=== PATIENT | male | born 1965 | race Caucasian/White ===

== ENCOUNTER 2016-07-26 00:26 | Inpatient (IN) | payer OTHER ==
--- NOTE | ~2016-07-26 | HP ---
History And Physical [place] [id number] [facility] [place]. [address] NAME: NICK DAMON : 65 STATUS : ADM IN [facility]#: [id number] AGE: 50 ADM/REG DATE : 07/26/16 MR#: [id number] REPORT SERV DATE: 07/26/16 DICTATED BY: ROSALIND LENZ DATE: 07/26/16 REPORT STATUS : Draft TRANSCRIBED BY: MODL DATE: 07/26/16 DATE OF ADMISSION: 07/26/2016 ATTENDING PHYSICIAN: Dr. Barreto. REASON FOR ADMISSION: Acute renal failure and morbid obesity with excoriation and skin damage from poor hygiene and super morbid obesity. HISTORY OF PRESENT ILLNESS: This is a 50-year-old morbidly obese, white male, not previously known to the [facility], however, known well to the examining physician. Mr. Damon was admitted to the [facility] when it was still in business with super morbid obesity and urine excoriation and ulcerations from urinating on himself and defecating on himself for over a prolonged period of time. On admission to [facility], the couch had to be peeled from him. He had been lying on the couch for several months in his father's house. His father would bring him food. He would defecate in a astorga of some sort and urinate in the astorga of some short, but does not get up and ambulate. The last he ambulated was about three to four years ago. He remained in the [facility] system for about three to four months and was discharged to [facility]. He was able to ambulate there in a wheelchair, self propelling himself at that time. He stayed there for about 30 days and went back home. His weight at discharge was 419 pounds. He has gained back up to around 800 pounds, where he was initially admitted to the system there. He has been at [facility] in the past for unknown diagnosis. I thought he may have had a bipolar affective disorder, but this was unconfirmed by psychiatric evaluation. He was on antipsychotic medication for this in the past the last time I saw him, though that was several physicians treating ago. He came to the emergency room this time because he had not been eating much for the last several days and he had change in mental status. His father called for help because he had change in mental status and was brought to the emergency room. where he was examined by several physicians including Dr. Ed Dubon, who was on sales and service agent at [facility]. Dr. Bauman, who was going to take him to the intensive care unit because of hypotension but because of morbid obesity, was reluctant. Dr. Axel Neves, who felt that he is a more intensive care unit patient with altered mental status and unable to get a CT scan because of his morbid obesity and size. Dr. Han Abel says that they considered sending him to the zoo that could handle a body weight over 600 pounds on the gantry for a CT scan of the brain; however, the patient is alert and able to give history, he is mobile bilaterally. He does have weakness in the left lower extremity, but he has not walked on that in the last four or five years. 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 I discussed with the behavioral health case manager, Sheryl, in the emergency room. She will assist with final disposition, though with the patient's dehydration and acute renal failure, he will be admitted to the hospital for resuscitation from this; however, other resuscitative attempts would be futile and will not be embarked upon. I discussed this with Dr. Abel who agrees. History And Physical [address] [address] NAME: NICK DAMON : 65 STATUS : ADM IN [facility]#: [id number] AGE: 50 ADM/REG DATE : 07/26/16 MR#: [id number] REPORT SERV DATE: 07/26/16 DICTATED BY: ROSALIND LENZ DATE: 07/26/16 REPORT STATUS : Draft TRANSCRIBED BY: MODL DATE: 07/26/16 PAST MEDICAL HISTORY: Hospitalized at [facility] with urine gibson and excoriation from poor hydration and super morbid obesity. He may have some history of depression in the past as well. HOME MEDICATIONS: His home medications are suspected to being the following: Laury Aspirin 325 p.o. daily, famotidine 200 mg p.o. daily, gabapentin 300 mg three times a day, glipizide 10 mg p.o. b.i.d., ibuprofen 400 mg p.o. three times a day, lisinopril 20 mg p.o. daily, Seroquel 25 mg p.o. at bedtime, Risperdal 2 mg p.o. b.i.d. ALLERGIES: ABILIFY. OTHER PAST HISTORY WAS OUTLINED ABOVE. SOCIAL HISTORY: The patient has not been in the past. He lives at home on a couch. His father takes care of him. His mother in 2014. Lives in [place], [place], and went to [employer]. FAMILY HISTORY: There is some heart disease and high blood pressure runs in the family. Father is not morbidly obese. REVIEW OF SYSTEMS: The patient denies any pain. He does have numbness and weakness in the left lower extremity, but he lies on the couch the whole time. He admits to having gained back the other 400 pounds that he lost in the hospital over three months' period of time. He admits to only using a trash can or astorga for urine and feces. He has no chest pain, shortness of breath. No fever, chills, night sweats, melena, hematemesis, fits, seizures, or convulsions. He has an unknown psychiatric history and was seen in [facility] in the past. The remainder of the review of systems is negative. PHYSICAL EXAMINATION: GENERAL: Morbidly obese white male, in no acute distress. Alert. Mouth is somewhat dry. He is hungry and wants to eat. VITAL SIGNS: Initial blood pressure was 80, measurable only with super morbid obesity cuff, it was recorded at 76/64; his heart rate was 91; respiratory rate 20; oxygen saturation 97%. HEENT: EOMI. Sclerae are clear. He does have some mucoid changes in his eyes with drainage and his eyes are slightly sunken. Tongue is dry. He has poor dentition, poor oral hygiene. CHEST: No bruit without any JVD. CHEST: Clear to A and P. HEART: Regular S1, S2 without murmur, gallop, or click. ABDOMEN: Grossly obese. There is a large panniculus lying over the left leg down to the level of the knees. History And Physical [address] [place]. [address] NAME: ELEAZARNICK D : 65 STATUS : ADM IN PAT#: [id number] AGE: 50 ADM/REG DATE : 07/26/16 MR#: [id number] REPORT SERV DATE: 07/26/16 DICTATED BY: ROSALIND LENZ DATE: 07/26/16 REPORT STATUS : Draft TRANSCRIBED BY: TAYLOR DATE: 07/26/16 EXTREMITIES: Warm on the left side with 1+ pitting edema. Distal pulses not palpable. He has excoriations and rash over his upper arms and chest, also over the legs with cracking of the skin and peeling. I was unable lift the panniculus to be able to examine under the panniculus, though I suspect there is significant problem there as well. NEUROLOGIC: He is able to wiggle the toes of his right foot, not the toes of the left, but he says he is numb on the left leg that I can palpate up to the level of the knee. No DTRs are elicitable. His coating manager is equal and symmetric. He has no tremor. Coordination is intact. His tone, slightly slurring of speech, but he is symmetric neurologically in the upper extremities. He desires to eat, he can swallow, is alert and oriented, able to give history. His speech is cogent and goal directed, though evasive and tangential. LABORATORY DATA: Chest x-ray was done that showed cardiomegaly, diffuse alveolar edema in the right lung, questioning aspiration. The CMP showed a sodium of 125, potassium 5.3, creatinine 3.83 with a BUN of 46, his glucose was 174, the globulin was 4.9 with an albumin of 2.6, and the AST was 159. His creatinine was 3.83 with a BUN of 46, sodium 125. Lactate level was 1.7. Arterial blood gas 7.32, 46, and 59 in the brachial artery. ASSESSMENT: 1. Dehydration, likely lack of access to water and hydration likely causing this, plus the addition of ibuprofen and lisinopril contributing to this. 2. Super morbid obesity. 3. 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 4. Psychiatric problems, undefined, presently on Risperdal and Seroquel. We will get Dr. Ott to see if we can refine the diagnosis better and effect better treatment. 5. Hypotension with history of hypertension. We will hold the medications, allow the blood pressure to go up with hydration and watch. 6. Protein-calorie malnutrition. His albumin was 2.6, this is likely moderate at least. 7. Deplorable hygiene with urine gibson, excoriation over the body. We will try to clean him up here in the hospital to make him presentable for the next level of care. 8. Hyponatremia, likely a function of the medication and the morbid obesity. PLAN: The patient is unable to have any imaging here because of his large body habitus. He has regained 400 pounds since his discharge from the previous cleanup done at [facility]. Much of the resuscitative attempts will be superfluous, therefore, the patient is not going to be resuscitated, except fluid hydration and treatment with compassionate care. I have discussed with Dr. Abel who agrees with this. We will not intubate or ventilate. Consider noninvasive ventilation potentially, however, I do not see the need for that coming up this time. We will go ahead and hydrate. I will not use empiric antibiotics at this point, though questionable chest x-ray with aspiration, the patient is fully alert now and able to protect his airway, and maybe able to clear the mental status change just with hydration. Withhold offending medications. Remeasure the BMP in the morning. Hygiene consult. Nutrition consult. Psychiatry consult to help refine medications and prevent this from happening again. The patient appears to be incompetent to make decisions on his own and has chosen poorly from the last prolonged resuscitative attempt at [facility] with weight loss from the History And Physical [facility] [address] [facility] [place]. [address] NAME: NICK DAMON : 65 STATUS : ADM IN PAT#: [id number] AGE: 50 ADM/REG DATE : 07/26/16 MR#: [id number] REPORT SERV DATE: 07/26/16 DICTATED BY: ROSALIND LENZ DATE: 07/26/16 REPORT STATUS : Draft TRANSCRIBED BY: MODL DATE: 07/26/16 800 down to the 419 pounds, now gained back and having resumed the same living conditions in the squalor of his father's house. We will consult with Case Management for consideration of reporting to adult protective services, though the patient likely at fault with the present problems. The patient does live in [place], [place]. ADDENDUM: His procalcitonin level was 0.36. DB/MODL Rosalind Lenz M.D. / [id number] CC: Barak Ott M.D.
--- NOTE | ~2016-07-26 | CN ---
Consultation Report [facility] [address] [place]. [address] NAME: NICK BUSH : 65 STATUS : ADM IN PAT#: [id number] AGE: 50 ADM/REG DATE : 07/26/16 MR#: [id number] REPORT SERV DATE: 07/27/16 DICTATED BY: BARAK DAN DATE: 07/27/16 REPORT STATUS : Draft TRANSCRIBED BY: TAYLOR DATE: 07/27/16 PSYCHIATRIC CONSULTATION DATE OF CONSULTATION: 07/27/2016 I reviewed this patient's medical record. I discussed the patient's status with Dr. Valentine, the hospitalist. HISTORY OF PRESENT ILLNESS: He was admitted with morbid obesity and generalized weakness. I was consulted to address his psychotropic medications and his psychiatric history. PAST PSYCHIATRIC HISTORY: He reports that he attended [facility], which is a mental health clinic in [place] during the period 2011 to 2012 approximately. He said he was diagnosed with depression. Currently, he is taking Seroquel 25 mg at bedtime and Risperdal 2 mg b.i.d. He thinks he might have been started on these medications at [facility]. He said he thought these medications were prescribed to treat insomnia. He reports that he experiences very severe insomnia and that he can go for days without sleep if he does not take medication to combat it. SOCIAL HISTORY: He was living with his father. His mother in 2014. He is single. He never . FAMILY HISTORY: He reports no psychiatric illness. MENTAL STATUS: He was awake and alert. He was cooperative in attitude. He smiled and he expressed humor. His mood was euthymic, possibly bordering on the euphoric. His affect was full and appropriate. His thinking was logical. He had no delusions. He had no hallucinations. He was oriented to day, date, location, and persons. DIAGNOSES: 1. Unspecified psychiatric illness. 2. Morbid obesity. RECOMMENDATIONS: I will discontinue the Risperdal and Seroquel since I see no evidence of psychosis and they may be contributing to obesity and metabolic derangements. I will start him on Ambien 10 mg at bedtime p.r.n. for insomnia. I will request records from [facility]. I will follow. MIKAYLA/TAYLOR Barak Dan M.D. Consultation Report [place] [id number] [facility] [place]. [address] NAME: NICK BUSH : 65 STATUS : ADM IN PAT#: [id number] AGE: 50 ADM/REG DATE : 07/26/16 MR#: [id number] REPORT SERV DATE: 07/27/16 DICTATED BY: BARAK DAN DATE: 07/27/16 REPORT STATUS : Draft TRANSCRIBED BY: MODL DATE: 07/27/16 / [id number] CC: Abdulaziz Valentine M.D.
--- NOTE | ~2016-07-26 | IDS ---
Interim Discharge Summary [facility] [address] [place]. [address] NAME: NICK BUSH : 65 STATUS : ADM IN [facility]#: [id number] AGE: 50 ADM/REG DATE : 07/26/16 MR#: [id number] REPORT SERV DATE: 08/05/16 DICTATED BY: GRAHAM IBRAHIM IV DATE: 08/04/16 REPORT STATUS : Draft TRANSCRIBED BY: MODKentrell DATE: 08/04/16 ADMISSION DATE: 07/26/2016 DISCHARGE DATE: Date of the transfer to the Critical Care Service is 07/28/2016. REASON FOR ADMISSION: 1. Postprocedural respiratory failure with both hypoxemia and hypercapnia on the ventilator, now extubated. 2. Acute kidney injury, resolved. 3. Methicillin-resistant Staphylococcus aureus bronchitis, on Zyvox therapy. 4. Diabetes mellitus, on Levemir insulin sliding scale and diabetic diet. 5. Morbid obesity. 6. Electrolyte abnormalities, being corrected. CONSULTANTS: 1. Palliative Care on 07/27/2016. 2. Urology on 07/27/2016. 3. Psychiatry on 07/27/2016. PROCEDURES: The patient had subclavian line placement at the time of his intubation for the procedure on 07/28/2016. He had a Evans catheter placed by Urology on 07/29/2016. HOSPITAL COURSE: The patient was initially admitted to the Hospitalist Service. Because of severe excoriations from urinating on himself and his renal insufficiency, it was decided to proceed with placement of suprapubic catheter. This was performed on 07/28/2016, which required intubation. Postoperatively, he was moved to the intensive care unit. It became apparent that the suprapubic catheter was not working adequately and likely had been pulled from the bladder. The patient underwent placement of a Evans on 07/29/2016 with removal of over 2 liters of fluid. With this, the patient had marked improvement of his renal function with normalization of his creatinine. He was placed on tube feeds and was given insulin coverage, both long and short-acting. We attempted to wean trials, however, on the ventilator, he required significant FiO2 and would fail weaning trials. Tracheal aspirate demonstrates MRSA, which was treated with Zyvox because of his morbid obesity. He had electrolyte abnormalities, which were corrected. Palliative Care continue to follow the patient. We initially had difficulty contacting the patient's father who is the POA because a wrong phone number was listed. A family conference occurred on 08/04/2016, at which time, it was decided the patient would be removed from mechanical ventilator and not restarted. He was extubated on 08/04/2016 and is currently doing adequately on Vapotherm high-flow supplemental oxygen. He is now DNR and will not be reintubated. He was advanced to an ADA diet with continued support. NM/TAYLOR Interim Discharge Summary [address] [place]. [address] NAME: NICK BUSH : 65 STATUS : ADM IN [facility]#: [id number] AGE: 50 ADM/REG DATE : 07/26/16 MR#: [id number] REPORT SERV DATE: 08/05/16 DICTATED BY: GRAHAM IBRAHIM IV DATE: 08/04/16 REPORT STATUS : Draft TRANSCRIBED BY: TAYLOR DATE: 08/04/16 Graham Ibrahim IV, M.D. / [id number] CC: Abdulaziz Valentine M.D.
--- NOTE | ~2016-07-26 | CN ---
Consultation Report [facility] [address] [place]. [address] NAME: NICK BUSH : 65 STATUS : ADM IN PAT#: [id number] AGE: 50 ADM/REG DATE : 07/26/16 MR#: [id number] REPORT SERV DATE: 07/28/16 DICTATED BY: ASHLEY LAUREN DATE: 07/27/16 REPORT STATUS : Draft TRANSCRIBED BY: MODKentrell DATE: 07/27/16 UROLOGY CONSULT. DATE OF CONSULTATION: 07/27/2016 This consult is from Dr. Valentine regarding inability to place the Evans catheter. CHIEF COMPLAINT: "Well that tube hurt." HISTORY: This is a 50-year-old gentleman who has a very sad history. He was admitted for acute renal failure and super morbid obesity with excoriation and skin damage from severely poor hygiene. This is not the first time he has been admitted with this diagnosis. He was admitted to [facility] with super morbid obesity and ulcerations from urinating and defecating on himself over a prolonged period of time. On admission to [facility], the sofa he had been living on had to be peeled away from his body. At that time, his father would bring him food and he would relieve himself into some sort of pain, but he did not get up or ambulate for several years. He remained in the [facility] for about four months and was then discharged to the [facility]. While he was there, he was able to ambulate himself in a wheel chair propelling himself at that time. He stayed there for 30 days and his weight at discharge went from 800 pounds to 419 pounds. Also of note, he had been admitted to [facility] for psychiatric diagnosis in the past, but the psychiatric diagnosis is unknown at this time. When he came to the Emergency Room at [facility], it was for a change in mental status and for a decreased appetite. His father had called [facility] Medical [facility] because of these complaints. Various physicians saw him in the emergency room, but workup was difficult due to his size. Upon presentation, his creatinine was elevated at 3.83 and he was obviously severely dehydrated. He was alert and able to give a history, though he was not as sharp as his usual baseline according to his father. He was complaining of weakness and numbness in his left lower extremity, but that is the side he laid on the sofa and he has a huge panniculus lying on that side as well. Initially, the plan was to obtain a CT of the brain and other imaging studies, but none of the scanners in the hospital could handle his body weight. After discussion with various physicians and Dr. Astorga, who has known the patient for many years, the plan was to treat him with compassionate care. Since he has gained 400 pounds since his discharge from his previous excessive resuscitative efforts at [facility], the belief is that huge resuscitative attempts at this time would be superfluous. The plan with this admission is fluid hydration and treatment with compassionate care. All of the physicians discussed agreed with this. Therefore, the imaging plans were canceled. Since admission, he has received IV fluids. His creatinine has decreased down to 1.57. His urine output has been very good. With the help of nine staff members and nurses, the patient underwent a bath that took an hour. This was after he had been treated for bed bugs in the emergency room. During his bath, he was found to have multiple skin lesions and sores on his arms and his legs and all of his skin folds. This also included his buttocks area and scrotal area which had been dependent while he has been living on the sofa these past several years. The concern is that if he continues to void out of the hole in his Consultation Report [address] [place]. [address] NAME: NICK BUSH Becca : 65 STATUS : ADM IN [facility]#: [id number] AGE: 50 ADM/REG DATE : 07/26/16 MR#: [id number] REPORT SERV DATE: 07/28/16 DICTATED BY: ASHLEY LAUREN DATE: 07/27/16 REPORT STATUS : Draft TRANSCRIBED BY: TAYLOR DATE: 07/27/16 buried penis and then leak urine on to his skin, the skin lesions will never heal. Evans catheter attempts were tried, but of course, with a buried penis, it was almost impossible to place a Evans catheter. Currently, nursing has been placing a urinal over the hole where his penis is located and he voids into the urinal that way. This does not keep him completely dry, but it does help. They were able to get fairly good urine output numbers with this. PAST MEDICAL HISTORY: Super morbid obesity, depression, gastroesophageal reflux disease, diabetes, hypertension, insomnia, severe deconditioning with no attempts to walk for a number of years as he had undefined psychiatric problems, protein malnutrition, and deplorable hygiene. PAST SURGICAL HISTORY: None recorded. ALLERGIES: ABILIFY. MEDICATIONS ON ADMISSION: Aspirin 325 mg a day, famotidine 200 mg a day, gabapentin 300 mg three times a day, glipizide 10 mg b.i.d., ibuprofen 400 mg three times a day, lisinopril 20 mg a day, Seroquel 25 mg at bedtime, Risperdal 2 mg b.i.d. SOCIAL HISTORY: He lives with his father on a sofa. His father is the one who cares for him. His mother in 2014. Denies any alcohol or tobacco use. REVIEW OF SYSTEMS: GENERAL: Denies fever or chills. NEUROLOGIC: He does have numbness and weakness in his left lower extremity. ENDOCRINE: As above. HEART: As above. LUNGS: Denies symptoms. GI: As above. : Denies symptoms. PHYSICAL EXAMINATION: VITAL SIGNS: He has been afebrile. Blood pressure 115/51, pulse of 87, saturating 96% on 4 L nasal cannula. In's and out's recorded for yesterday were 522 mL in and 1550 mL out. GENERAL: He is in no acute distress. Lying in bed. NEUROLOGIC: Alert and oriented x3. PSYCHIATRIC: Appropriate. HEENT: Facial features symmetric. EYES: Sclerae anicteric. NECK: Supple. LUNGS: Equal inspiratory effort bilaterally. HEART: Regular rate and rhythm. ABDOMEN: Obese. EXTREMITIES: Obese. Consultation Report [place] [id number] [facility] [place]. [address] NAME: NICK BUSH : 65 STATUS : ADM IN [facility]#: [id number] AGE: 50 ADM/REG DATE : 07/26/16 MR#: [id number] REPORT SERV DATE: 07/28/16 DICTATED BY: ASHLEY LAUREN DATE: 07/27/16 REPORT STATUS : Draft TRANSCRIBED BY: TAYLOR DATE: 07/27/16 LABORATORY STUDIES: White count is 7.8, hemoglobin 10.8, hematocrit 33, platelets 293. Sodium 133, potassium 5.1, chloride 99, CO2 26, BUN of 36, creatinine 1.57, glucose 106, calcium of 8.3, albumin of 2.6, bilirubin 0.5, alk phos 58, ALT of 38, AST of 159. Blood cultures are negative. Chest x-ray showed diffuse alveolar edema in the right lung, question aspiration pneumonitis. 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 PLAN: 1. Even if I could heroically place a Evans catheter in this gentleman, it would need to be changed once a month. Changing the catheter would be quite difficult and successful exchange every month is not at all guaranteed with someone of his body habitus. 2. The most reasonable plan for diversion of his urine for skin healing would be placement of a suprapubic tube by Interventional Radiology. Having this tube located in his lower abdomen, would allow easier access for cleaning and monitoring the tube. Also, it could be exchanged much more easily than a Evans catheter would be in someone with his body habitus. I have discussed this with the patient and he is willing to proceed with this tomorrow. 3. I have written orders to ask Interventional Radiology to work him into their schedule tomorrow for suprapubic tube placement under radiologic guidance. Hopefully, they can do this under ultrasound guidance, which means he would not need to be placed on an x- ray table. I have written for laboratory studies in the morning that they will require and also to hold his aspirin and heparin. 4. We will check on him tomorrow and make sure that all goes well. 5. This suprapubic tube can be removed once his skin has healed. ERIKA/TAYLOR Ashley Lauren M.D. / [id number] CC: Abdulaziz Valentine M.D.
--- NOTE | ~2016-07-26 | IDS ---
Interim Discharge Summary [facility] [address] [place]. [address] NAME: NICK BUSH : 65 STATUS : ADM IN PAT#: [id number] AGE: 51 ADM/REG DATE : 07/26/16 MR#: [id number] REPORT SERV DATE: 08/15/16 DICTATED BY: BONIFACIO BABIN DATE: 08/14/16 REPORT STATUS : Draft TRANSCRIBED BY: MODL DATE: 08/14/16 ADMISSION DATE: 07/26/2016 DISCHARGE DATE: INTERIM DIAGNOSES LIST: Include: 1. Acute on chronic respiratory failure, hypoxic and hypercapnic. 2. Super morbid obesity and hypoventilation syndrome, but intolerant to BiPAP. 3. Acute urinary retention with Evans catheter placement by Urology. 4. Diabetes type 2, hemoglobin A1c of 8.9. 5. Acute kidney injury resolved. 6. Methicillin-resistant Staphylococcus aureus that is treated. 7. Incontinence of stool. HISTORY OF PRESENT ILLNESS: This is an unfortunate 51-year-old male who originally presented to [facility] on 07/26/2016. Please see the initial H and P of Dr. Jimmy Astorga, as the patient admitted initially to the hospitalist service, as the patient had severe dehydration, severe volume overload, malnutrition, hyponatremia, excoriation to skin, and the patient was also seen by the [facility], and please see the interim discharge summaries of Dr. Bob Ibrahim and Dr. Joshua Navarro as this discharge summary will cover the dates of 08/08/2016 to 08/14/2016. CONSULTANTS DURING THIS ADMISSION: Include Psychiatry, Barak Ott M.D., the Urology, Ashley Lauren M.D., Critical Care Services as stated, and Palliative Care, Dr. Canseco. Once the patient was moved out of the intensive care unit, he continued to diurese quite well and his oxygen requirements were still high, but able to be weaned slowly. Initially was on a high-flow oxygen approximately 17 L, but has been slowly step-down each day, all the way to 4 L nasal cannula. He has been attempted on BiPAP therapy nightly, however, he has been completely intolerant to this and refuses to wear the BiPAP, but has made continued improvement in his overall outlook and as stated, continues to diurese very well. Currently Case Management is looking into placement, but it continues to be a difficult issue to find a facility for him. Overall, he has remained afebrile. Blood pressures have been stable and blood sugars are well controlled, and his skin has improved a good deal. CSC/MODL Bonifacio Babin NP / [id number] CC: Laura Garcia M.D.
--- NOTE | ~2016-07-26 | IDS ---
Interim Discharge Summary [facility] [address] [place]. [address] NAME: NICK BUSH : 65 STATUS : ADM IN [facility]#: [id number] AGE: 50 ADM/REG DATE : 07/26/16 MR#: [id number] REPORT SERV DATE: 08/06/16 DICTATED BY: NHI LUJAN DATE: 08/05/16 REPORT STATUS : Draft TRANSCRIBED BY: MODL DATE: 08/05/16 ADMISSION DATE: 07/26/2016 DISCHARGE DATE: 08/05/2016 DISCHARGE DIAGNOSES: 1. Hypoxic hypercapnic respiratory failure, extubated on 08/04/2016, resolved pneumonia MRSA on D5 and Zyvox. 2. Morbid obesity, obstructive sleep apnea, obesity hypoventilation syndrome, refuses to wear BiPAP. 3. Acute kidney injury on chronic kidney disease. Creatinine is trended down to 0.87. 4. Urinary retention catheter. 5. Diabetes mellitus, on insulin. The patient is awake, alert, responsive, and he is communicative. Sodium 142, potassium 3.2 being corrected, chloride 98, CO2 of 35, BUN 14, creatinine 0.74, glucose 125, calcium 8.2, magnesium 2.0, phosphorus 2.7. Interim discharge already dictated. Chest x-ray; no acute cardiopulmonary disease or cardiomegaly. RP/TAYLOR Nhi Lujan M.D. / [id number] CC: Abdulaziz Valentine M.D.
--- NOTE | ~2016-07-26 | PUL ---
[place] [id number] [place]. [address] NAME: NICK UBSH : 65 STATUS : ADM IN [facility]#: [id number] AGE: 50 ADM/REG DATE : 07/26/16 MR#: [id number] REPORT SERV DATE: 07/30/16 DICTATED BY: JEREMIAS CISNEROS DATE: 07/30/16 REPORT STATUS : Draft TRANSCRIBED BY: MODL DATE: 07/30/16 PULMONARY FUNCTION TEST PROCEDURE PERFORMED: Overnight oximetry performed on supplemental oxygen. Recorded time was slightly over six hours. FINDINGS: The patient spent slightly over five minutes with an oxygen saturation below 88% and did have an elevated desaturation event index. IMPRESSION: Mild desaturation on supplemental oxygen. Consider increasing liter flow to 3 L/minute. Consider formal sleep study if clinically indicated given the elevated desaturation event index. BARRIE/TAYLOR Jeremias Cisneros M.D. / [id number] CC: Abdulaziz Valentine M.D.
--- NOTE | ~2016-07-26 | DS ---
Discharge Summary [facility] [address] [place]. [address] NAME: NICK BUSH : 65 STATUS : DIS IN PAT#: [id number] AGE: 51 ADM/REG DATE : 07/26/16 MR#: [id number] REPORT SERV DATE: 08/25/16 DICTATED BY: JIMY MCINTYRE DATE: 08/24/16 REPORT STATUS : Draft TRANSCRIBED BY: MODL DATE: 08/24/16 ADMISSION DATE: 07/26/2016 DISCHARGE DATE: 08/23/2016 DISCHARGE DIAGNOSES: 1. Acute on chronic respiratory failure, hypoxic and hypercapnic. 2. Morbidly obese with hypoventilation syndrome, intolerant to BiPAP. 3. Acute urinary retention with Evans catheter placement then having to place patient in the ICU. 4. Type 2 diabetes mellitus. 5. Acute kidney injury, now resolved. 6. Methicillin-resistant Staphylococcus aureus pneumonia that has been treated. 7. Incontinent of stool. CONSULTANTS DURING THE HOSPITALIZATION: Palliative Care, Urology, and Psychiatry. INVASIVE PROCEDURES DURING THIS HOSPITALIZATION: Subclavian line placement at the time of intubation and mechanical ventilation, Evans catheter placement under anesthesia by Urology. Then followed by respiratory failure. HOSPITAL COURSE: This patient initially was admitted on 07/26/[address] Jimmy Astorga for acute renal failure, morbid obesity, excoriations of the skin, and poor hygiene. For detailed history and physical exam, please see note dictated by Dr. Astorga on 07/26/2016. HOSPITAL COURSE: After being admitted to the hospital, this patient underwent Psychiatric consultation. He underwent a Urology consultation for Evans placement and Pulmonology consultation on 07/27/2016, 07/28/2016, 07/30/2016 appropriately, and then postprocedure after Evans placement, this patient had respiratory failure, so he had to be transitioned to the intensive care unit with intubation. This patient remained in the intensive care unit until 07/27/2016. Please refer to interim summary dictated by Dr. Ibrahim and Dr. Navarro. This patient was transitioned to the floor after that and was under the care of the hospitalist team. Please refer to interim summary dictated by nurse practitioner, Bonifacio Stark, on 08/15/2016 for that hospital course. After 08/15/2016, this patient was cared for by various other hospitalist and no interim summary was available. I took over this patient's care on 08/22/2016, this patient was doing relatively well. We were waiting for a bariatric bed to be available at [facility] facility. This was made available on the 08/23/2016. I personally reviewed all his medications, and this patient was discharged to a skilled unit in stable condition. We have continued his Evans catheter, and at that time, it was deemed necessary that he continued with the Evans catheter. DISCHARGE MEDICATIONS: Discharge medications were personally reviewed on the AUG and signed off by me. DISCHARGE ACTIVITY: Per facility. DISCHARGE DIET: 2000 calorie ADA diet. Discharge Summary [address] [address] NAME: NICK BUSH : 65 STATUS : DIS IN [facility]#: [id number] AGE: 51 ADM/REG DATE : 07/26/16 MR#: [id number] REPORT SERV DATE: 08/25/16 DICTATED BY: JIMY MCINTYRE DATE: 08/24/16 REPORT STATUS : Draft TRANSCRIBED BY: TAYLOR DATE: 08/24/16 DISCHARGE FOLLOWUP: Will be with primary care physician. DUANE/TAYLOR Jimy Mcintyre M.D. / [id number] CC: Jimy Mcintyre M.D.
[2016-07-26 02:01] LABS: BASOPHILS 0.2 %; BASOPHILS ABSOLUTE 0.02 10/3/uL (0.0-0.16); EOSINOPHILS 0.6 %; EOSINOPHILS ABSOLUTE 0.07 10/3/uL (0.0-0.53); ER CBC TAT 0 Hrs 16 Mins; HEMATOCRIT 35.5 % (40.0-51.0); HEMOGLOBIN 11.8 g/dL (13.6-17.8); IMMATURE GRANULOCYTES 0.5 %; IMMATURE GRANULOCYTES ABSOLUTE 0.06 10/3/uL (0.0-0.11); LYMPHOCYTES 8.5 %; LYMPHOCYTES ABSOLUTE 0.94 10/3/uL (0.67-4.30); MEAN CORPUS HGB CONC 33.2 g/dL (32.0-36.0); MEAN CORPUSCULAR HEMOGLOB 31.1 pg (26.0-34.0); MEAN CORPUSCULAR VOLUME 93.4 fL (80-100); MEAN PLATELET VOLUME 8.7 fL (9.2-13.0); MONOCYTES 7.2 %; NEUTROPHILS ABSOLUTE 9.19 10/3/uL (2.02-8.40); PLATELET COUNT 316 10/3/uL (150-400); RBC DISTRIBUTION WIDTH 14.1 % (12.0-16.0); WHITE BLOOD CELLS 11.1 10/3/uL (4.5-10.5)
[2016-07-26 02:03] LABS: INSTRUMENT SERIAL # 8087; PCO2 (CO2 TENSION) 46 MMHG (35-45); PO2 (O2 TENSION) 59 MMHG (79-93); pH 7.32 (7.37-7.43)
[2016-07-26 02:04] LABS: CARBOXYHEMOGLOBIN 1.9 % (0-3); HCO3 (ACTUAL BICARBONATE) 23.2 MEQ/L (23-27); HEMOBLOGIN CONTENT 11.3 G/DL (14-18); METHEMOGLOBIN 0.1 % (0-3); O2 CONTENT 13.8 VOL% (18-24); SAMPLE Arterial
[2016-07-26 02:09] LABS: LACTATE 1.7 MMOL/L (0.3-2.4)
[2016-07-26 02:14] LABS: MANUAL DIFF NO %
[2016-07-26 02:16] LABS: PLATELET ESTIMATE ADQ (ADEQUATE)
[2016-07-26 05:06] LABS: POTASSIUM, SERUM 5.3 MMOL/L (3.5-5.3); SGOT(AST) 159 U/L (5-40); SODIUM, SERUM 125 MMOL/L (135-148)
[2016-07-26 05:23] LABS: CHLORIDE, SERUM 91 MMOL/L (96-112)
[2016-07-26 05:24] LABS: A/G RATIO 0.5 (0.7-1.9); ALBUMIN 2.6 G/DL (3.5-5.0); ALKALINE PHOSPHATASE 58 U/L (45-117); BUN (BLOOD UREA NITROGEN) 46 MG/DL (6-23); CALCIUM, SERUM 8.3 MG/DL (8.5-10.4); CO2 (CARBON DIOXIDE) 22 MMOL/L (24-34); CREATININE 3.83 MG/DL (0.70-1.30); GFR AFRICAN AMERICAN 20 ML/MIN (>=60); GFR NON AFRICAN AMERICAN 17 ML/MIN (>=60); GLOBULIN 4.9 G/DL (2.5-4.1); GLUCOSE, SERUM 174 MG/DL (60-99); SGPT(ALT) 38 U/L (5-65); TOTAL BILIRUBIN 0.5 MG/DL (0-1.2); TOTAL PROTEIN 7.5 G/DL (6.0-8.5)
[2016-07-26] MEDS ORDERED: NEUR300 PO (06:02)
[2016-07-26] MEDS ORDERED: SEROQUEL25 PO (06:03)
[2016-07-26] MEDS ORDERED: PEP20 PO (06:03)
[2016-07-26] MEDS ORDERED: IBU400 PO (06:03)
[2016-07-26] MEDS ORDERED: RISP2 PO (06:03)
[2016-07-26] MEDS ORDERED: PRIN20 PO (06:03)
[2016-07-26] MEDS ORDERED: GLUCOTRO10 PO (06:04)
[2016-07-26] MEDS ORDERED: ASABAYER PO (06:04)
[2016-07-26 06:05] LABS: PROCALCITONIN 0.36 ng/mL (<0.5)
[2016-07-27 09:59] LABS: BASOPHILS 0.3 %; BASOPHILS ABSOLUTE 0.02 10/3/uL (0.0-0.16); EOSINOPHILS 4.1 %; EOSINOPHILS ABSOLUTE 0.32 10/3/uL (0.0-0.53); HEMOGLOBIN 10.8 g/dL (13.6-17.8); IMMATURE GRANULOCYTES ABSOLUTE 0.08 10/3/uL (0.0-0.11); LYMPHOCYTES 15.9 %; LYMPHOCYTES ABSOLUTE 1.24 10/3/uL (0.67-4.30); MEAN CORPUS HGB CONC 32.7 g/dL (32.0-36.0); MEAN CORPUSCULAR HEMOGLOB 31.2 pg (26.0-34.0); MEAN CORPUSCULAR VOLUME 95.4 fL (80-100); MEAN PLATELET VOLUME 8.6 fL (9.2-13.0); MONOCYTES 10.3 %; NEUTROPHILS 68.4 %; NEUTROPHILS ABSOLUTE 5.34 10/3/uL (2.02-8.40); PLATELET COUNT 293 10/3/uL (150-400); RBC DISTRIBUTION WIDTH 14.1 % (12.0-16.0); RED CELL COUNT 3.46 10/6/uL (4.7-6.1); WHITE BLOOD CELLS 7.8 10/3/uL (4.5-10.5)
[2016-07-27 10:00] LABS: MANUAL DIFF NO %
[2016-07-27 10:09] LABS: BUN (BLOOD UREA NITROGEN) 36 MG/DL (6-23); CALCIUM, SERUM 8.3 MG/DL (8.5-10.4); CHLORIDE, SERUM 99 MMOL/L (96-112); CO2 (CARBON DIOXIDE) 26 MMOL/L (24-34); CREATININE 1.57 MG/DL (0.70-1.30); GFR AFRICAN AMERICAN 59 ML/MIN (>=60); GFR NON AFRICAN AMERICAN 51 ML/MIN (>=60); GLUCOSE, SERUM 106 MG/DL (60-99); POTASSIUM, SERUM 5.1 MMOL/L (3.5-5.3); SODIUM, SERUM 133 MMOL/L (135-148)
[2016-07-28 05:33] LABS: ALLENS TEST Pos; CARBOXYHEMOGLOBIN 0.9 % (0-3); HCO3 (ACTUAL BICARBONATE) 24.8 MEQ/L (23-27); HEMOBLOGIN CONTENT 10.5 G/DL (14-18); INSTRUMENT SERIAL # 8083; METHEMOGLOBIN 0.3 % (0-3); O2 CONTENT 13.8 VOL% (18-24); OPERATOR ID 30013; PCO2 (CO2 TENSION) 58 MMHG (35-45); PO2 (O2 TENSION) 77 MMHG (79-93); SAMPLE Arterial; pH 7.25 (7.37-7.43)
[2016-07-28 06:03] LABS: INTERNATIONAL NORMAL RATI 1.2 UNITS (-); PROTIME (NOT ORD) 14.7 SEC (12.0-14.5)
[2016-07-28 06:11] LABS: BASOPHILS 0.5 %; BASOPHILS ABSOLUTE 0.04 10/3/uL (0.0-0.16); EOSINOPHILS 4.4 %; EOSINOPHILS ABSOLUTE 0.38 10/3/uL (0.0-0.53); HEMATOCRIT 31.3 % (40.0-51.0); IMMATURE GRANULOCYTES 1.8 %; IMMATURE GRANULOCYTES ABSOLUTE 0.15 10/3/uL (0.0-0.11); LYMPHOCYTES 19.1 %; LYMPHOCYTES ABSOLUTE 1.63 10/3/uL (0.67-4.30); MEAN CORPUS HGB CONC 31.9 g/dL (32.0-36.0); MEAN CORPUSCULAR HEMOGLOB 31.2 pg (26.0-34.0); MEAN CORPUSCULAR VOLUME 97.5 fL (80-100); MEAN PLATELET VOLUME 8.4 fL (9.2-13.0); MONOCYTES 12.5 %; MONOCYTES ABSOLUTE 1.07 10/3/uL (0.21-1.20); NEUTROPHILS 61.7 %; NEUTROPHILS ABSOLUTE 5.28 10/3/uL (2.02-8.40); PLATELET COUNT 321 10/3/uL (150-400); RBC DISTRIBUTION WIDTH 14.4 % (12.0-16.0); RED CELL COUNT 3.21 10/6/uL (4.7-6.1); WHITE BLOOD CELLS 8.6 10/3/uL (4.5-10.5)
[2016-07-28 06:14] LABS: MANUAL DIFF NO %
[2016-07-28 06:15] LABS: A/G RATIO 0.5 (0.7-1.9); ALBUMIN 2.2 G/DL (3.5-5.0); ALKALINE PHOSPHATASE 45 U/L (45-117); BUN (BLOOD UREA NITROGEN) 34 MG/DL (6-23); CALCIUM, SERUM 8.5 MG/DL (8.5-10.4); CHLORIDE, SERUM 99 MMOL/L (96-112); CO2 (CARBON DIOXIDE) 26 MMOL/L (24-34); CREATININE 1.77 MG/DL (0.70-1.30); GFR AFRICAN AMERICAN 51 ML/MIN (>=60); GFR NON AFRICAN AMERICAN 44 ML/MIN (>=60); GLOBULIN 4.3 G/DL (2.5-4.1); GLUCOSE, SERUM 99 MG/DL (60-99); PHOSPHORUS, SERUM 4.7 MG/DL (2.5-4.5); POTASSIUM, SERUM 5.4 MMOL/L (3.5-5.3); SGOT(AST) 280 U/L (5-40); SGPT(ALT) 58 U/L (5-65); SODIUM, SERUM 134 MMOL/L (135-148); TOTAL BILIRUBIN 0.6 MG/DL (0-1.2); TOTAL PROTEIN 6.5 G/DL (6.0-8.5)
[2016-07-28 07:33] LABS: PROCALCITONIN 0.11 ng/mL (<0.5)
[2016-07-28 18:43] LABS: BE (BASE EXCESS) 0.7 MEQ/L (0 +/- 2.5); CARBOXYHEMOGLOBIN 0.4 % (0-3); HCO3 (ACTUAL BICARBONATE) 27.2 MEQ/L (23-27); HEMOBLOGIN CONTENT 11.3 G/DL (14-18); INSTRUMENT SERIAL # 11843; METHEMOGLOBIN 0.4 % (0-3); MODE SIMV; O2 CONTENT 16.2 VOL% (18-24); OPERATOR ID 19104; PCO2 (CO2 TENSION) 53 MMHG (35-45); PO2 (O2 TENSION) 241 MMHG (79-93); SAMPLE Arterial; TIDAL VOLUME 700 ML; pH 7.33 (7.37-7.43)
[2016-07-29 03:59] LABS: BE (BASE EXCESS) 1.4 MEQ/L (0 +/- 2.5); CARBOXYHEMOGLOBIN 0.1 % (0-3); HCO3 (ACTUAL BICARBONATE) 26.3 MEQ/L (23-27); INSTRUMENT SERIAL # 35151; PCO2 (CO2 TENSION) 43 MMHG (35-45); PO2 (O2 TENSION) 87 MMHG (79-93); pH 7.41 (7.37-7.43)
[2016-07-29 04:00] LABS: HEMOBLOGIN CONTENT 10.4 G/DL (14-18); METHEMOGLOBIN 0.2 % (0-3); MODE CMV; O2 CONTENT 14.2 VOL% (18-24); SAMPLE Arterial; TIDAL VOLUME 700 ML
[2016-07-29 07:39] LABS: BASOPHILS 0.4 %; BASOPHILS ABSOLUTE 0.03 10/3/uL (0.0-0.16); EOSINOPHILS 4.4 %; EOSINOPHILS ABSOLUTE 0.37 10/3/uL (0.0-0.53); HEMATOCRIT 28.8 % (40.0-51.0); HEMOGLOBIN 9.5 g/dL (13.6-17.8); IMMATURE GRANULOCYTES 1.7 %; IMMATURE GRANULOCYTES ABSOLUTE 0.14 10/3/uL (0.0-0.11); LYMPHOCYTES 17.1 %; LYMPHOCYTES ABSOLUTE 1.45 10/3/uL (0.67-4.30); MEAN CORPUSCULAR HEMOGLOB 30.9 pg (26.0-34.0); MEAN PLATELET VOLUME 8.2 fL (9.2-13.0); MONOCYTES 8.3 %; NEUTROPHILS 68.1 %; NEUTROPHILS ABSOLUTE 5.78 10/3/uL (2.02-8.40); PLATELET COUNT 240 10/3/uL (150-400); RBC DISTRIBUTION WIDTH 14.3 % (12.0-16.0); RED CELL COUNT 3.07 10/6/uL (4.7-6.1); WHITE BLOOD CELLS 8.5 10/3/uL (4.5-10.5)
[2016-07-29 07:41] LABS: MANUAL DIFF NO %; MEAN CORPUSCULAR VOLUME 93.8 fL (80-100)
[2016-07-29 07:52] LABS: BUN (BLOOD UREA NITROGEN) 33 MG/DL (6-23); CALCIUM, SERUM 8.4 MG/DL (8.5-10.4); CHLORIDE, SERUM 100 MMOL/L (96-112); CHOL/HDL RATIO(NOT ORDER) 2.9 (0-5); CHOLESTEROL 110 MG/DL (< 200); CO2 (CARBON DIOXIDE) 26 MMOL/L (24-34); CREATININE 1.46 MG/DL (0.70-1.30); GFR AFRICAN AMERICAN 64 ML/MIN (>=60); GFR NON AFRICAN AMERICAN 55 ML/MIN (>=60); HDL CHOLESTEROL 38 MG/DL (> 39); LDL CHOLESTEROL 38 MG/DL (< 130); NON-HDL CHOLESTEROL 72 MG/DL (< 160); POTASSIUM, SERUM 5.3 MMOL/L (3.5-5.3); SODIUM, SERUM 137 MMOL/L (135-148); TRIGLYCERIDE 170 MG/DL (< 150)
[2016-07-29 07:53] LABS: GLUCOSE, SERUM 122 MG/DL (60-99); PHOSPHORUS, SERUM 3.7 MG/DL (2.5-4.5)
[2016-07-29 19:09] LABS: ASCORBIC ACID (UR NOT ORDER) NEG (NEG); BILIRUBIN, URINE NEGATIVE (NEG); KETONE, URINE TRACE MG/DL (NEG); LEUKOCYTE ESTERASE(NOT OR NEG (NEG); WBC (NOT ORDERED) (RFLEX) 1 (0-5)
[2016-07-30 03:50] LABS: ALLENS TEST Pos; BE (BASE EXCESS) 3.8 MEQ/L (0 +/- 2.5); CARBOXYHEMOGLOBIN 0.1 % (0-3); HCO3 (ACTUAL BICARBONATE) 29.1 MEQ/L (23-27); HEMOBLOGIN CONTENT 11.7 G/DL (14-18); INSTRUMENT SERIAL # 35151; METHEMOGLOBIN 0.1 % (0-3); MODE CMV; O2 CONTENT 15.9 VOL% (18-24); OPERATOR ID 17370; PCO2 (CO2 TENSION) 47 MMHG (35-45); PO2 (O2 TENSION) 89 MMHG (79-93); SAMPLE Arterial; TIDAL VOLUME 500 ML; pH 7.41 (7.37-7.43)
[2016-07-30 04:14] LABS: BASOPHILS 0.3 %; BASOPHILS ABSOLUTE 0.03 10/3/uL (0.0-0.16); EOSINOPHILS 0.9 %; HEMOGLOBIN 10.8 g/dL (13.6-17.8); IMMATURE GRANULOCYTES 2.2 %; IMMATURE GRANULOCYTES ABSOLUTE 0.24 10/3/uL (0.0-0.11); LYMPHOCYTES ABSOLUTE 0.86 10/3/uL (0.67-4.30); MEAN CORPUS HGB CONC 32.5 g/dL (32.0-36.0); MEAN CORPUSCULAR HEMOGLOB 30.9 pg (26.0-34.0); MEAN CORPUSCULAR VOLUME 94.9 fL (80-100); MEAN PLATELET VOLUME 8.3 fL (9.2-13.0); MONOCYTES 6.3 %; MONOCYTES ABSOLUTE 0.68 10/3/uL (0.21-1.20); NEUTROPHILS 82.3 %; NEUTROPHILS ABSOLUTE 8.86 10/3/uL (2.02-8.40); PLATELET COUNT 299 10/3/uL (150-400); RBC DISTRIBUTION WIDTH 13.8 % (12.0-16.0); WHITE BLOOD CELLS 10.8 10/3/uL (4.5-10.5)
[2016-07-30 04:28] LABS: ALBUMIN 2.1 G/DL (3.5-5.0); BUN (BLOOD UREA NITROGEN) 30 MG/DL (6-23); CALCIUM, SERUM 8.9 MG/DL (8.5-10.4); CHLORIDE, SERUM 98 MMOL/L (96-112); CO2 (CARBON DIOXIDE) 27 MMOL/L (24-34); CREATININE 1.41 MG/DL (0.70-1.30); GFR AFRICAN AMERICAN 67 ML/MIN (>=60); GFR NON AFRICAN AMERICAN 58 ML/MIN (>=60); PHOSPHORUS, SERUM 4.4 MG/DL (2.5-4.5); POTASSIUM, SERUM 5.2 MMOL/L (3.5-5.3); SODIUM, SERUM 136 MMOL/L (135-148)
[2016-07-30 04:39] LABS: GLUCOSE, SERUM 200 MG/DL (60-99)
[2016-07-30 04:40] LABS: HEMATOCRIT 33.2 % (40.0-51.0); MANUAL DIFF NO %
[2016-07-31 04:54] LABS: BE (BASE EXCESS) 5.3 MEQ/L (0 +/- 2.5); HCO3 (ACTUAL BICARBONATE) 31.2 MEQ/L (23-27); HEMOBLOGIN CONTENT 10.5 G/DL (14-18); INSTRUMENT SERIAL # 8087; METHEMOGLOBIN 0.1 % (0-3); MODE CMV; O2 CONTENT 14.3 VOL% (18-24); OPERATOR ID 334499; PCO2 (CO2 TENSION) 53 MMHG (35-45); PO2 (O2 TENSION) 92 MMHG (79-93); SAMPLE Arterial; TIDAL VOLUME 500 ML; pH 7.39 (7.37-7.43)
[2016-07-31 04:56] LABS: HEMATOCRIT 30.7 % (40.0-51.0); HEMOGLOBIN 9.9 g/dL (13.6-17.8); MEAN CORPUS HGB CONC 32.2 g/dL (32.0-36.0); MEAN CORPUSCULAR HEMOGLOB 30.8 pg (26.0-34.0); MEAN CORPUSCULAR VOLUME 95.6 fL (80-100); MEAN PLATELET VOLUME 8.5 fL (9.2-13.0); PLATELET COUNT 319 10/3/uL (150-400); RBC DISTRIBUTION WIDTH 14.4 % (12.0-16.0); RED CELL COUNT 3.21 10/6/uL (4.7-6.1); WHITE BLOOD CELLS 10.2 10/3/uL (4.5-10.5)
[2016-07-31 04:57] LABS: MANUAL DIFF YES %
[2016-07-31 05:19] LABS: CALCIUM, SERUM 8.9 MG/DL (8.5-10.4); CHLORIDE, SERUM 99 MMOL/L (96-112); CO2 (CARBON DIOXIDE) 30 MMOL/L (24-34); CREATININE 1.09 MG/DL (0.70-1.30); GFR AFRICAN AMERICAN 91 ML/MIN (>=60); GFR NON AFRICAN AMERICAN 79 ML/MIN (>=60); GLUCOSE, SERUM 199 MG/DL (60-99); PHOSPHORUS, SERUM 3.9 MG/DL (2.5-4.5); SODIUM, SERUM 137 MMOL/L (135-148)
[2016-07-31 05:23] LABS: BUN (BLOOD UREA NITROGEN) 24 MG/DL (6-23); POTASSIUM, SERUM 5.2 MMOL/L (3.5-5.3)
[2016-07-31 06:37] LABS: EOSINOPHILS 2 %; IMMATURE GRANS ABSOLUTE (CALC) 0.41 10/3/uL (0.0-0.11); LYMPHOCYTES 8 %; LYMPHOCYTES ABSOLUTE (CALC) 0.82 10/3/uL (0.67-4.30); METAMYELOCYTES 4 %; MONOCYTES 10 %; MONOCYTES ABSOLUTE (CALC) 1.02 10/3/uL (0.21-1.20); NEUTROPHILS ABSOLUTE (CALC) 7.75 10/3/uL (2.02-8.40); SEGMENTED NEUTROPHIL (0) 76 %; TEARDROP SHAPED RBCS OCC (0-2/OIF); TOTAL NUCLEATED CELLS 100
[2016-07-31 06:38] LABS: PLATELET ESTIMATE ADQ (ADEQUATE)
[2016-08-01 04:55] LABS: BASOPHILS 0.6 %; BASOPHILS ABSOLUTE 0.05 10/3/uL (0.0-0.16); EOSINOPHILS 2.9 %; EOSINOPHILS ABSOLUTE 0.25 10/3/uL (0.0-0.53); HEMATOCRIT 32.8 % (40.0-51.0); HEMOGLOBIN 9.9 g/dL (13.6-17.8); IMMATURE GRANULOCYTES 4.6 %; LYMPHOCYTES 18.2 %; LYMPHOCYTES ABSOLUTE 1.57 10/3/uL (0.67-4.30); MEAN CORPUS HGB CONC 30.2 g/dL (32.0-36.0); MEAN CORPUSCULAR HEMOGLOB 30.1 pg (26.0-34.0); MEAN CORPUSCULAR VOLUME 99.7 fL (80-100); MEAN PLATELET VOLUME 9.1 fL (9.2-13.0); MONOCYTES 6.3 %; MONOCYTES ABSOLUTE 0.54 10/3/uL (0.21-1.20); NEUTROPHILS 67.4 %; PLATELET COUNT 263 10/3/uL (150-400); RBC DISTRIBUTION WIDTH 14.5 % (12.0-16.0); RED CELL COUNT 3.29 10/6/uL (4.7-6.1); WHITE BLOOD CELLS 8.6 10/3/uL (4.5-10.5)
[2016-08-01 04:56] LABS: MANUAL DIFF NO %
[2016-08-01 05:21] LABS: A/G RATIO 0.4 (0.7-1.9); ALBUMIN 1.8 G/DL (3.5-5.0); ALKALINE PHOSPHATASE 38 U/L (45-117); BUN (BLOOD UREA NITROGEN) 23 MG/DL (6-23); CALCIUM, SERUM 8.6 MG/DL (8.5-10.4); CHLORIDE, SERUM 98 MMOL/L (96-112); CO2 (CARBON DIOXIDE) 28 MMOL/L (24-34); CREATININE 0.91 MG/DL (0.70-1.30); GFR AFRICAN AMERICAN 113 ML/MIN (>=60); GFR NON AFRICAN AMERICAN 98 ML/MIN (>=60); GLOBULIN 4.6 G/DL (2.5-4.1); GLUCOSE, SERUM 205 MG/DL (60-99); PHOSPHORUS, SERUM 3.2 MG/DL (2.5-4.5); SGPT(ALT) 38 U/L (5-65); SODIUM, SERUM 136 MMOL/L (135-148); TOTAL BILIRUBIN 0.3 MG/DL (0-1.2); TOTAL PROTEIN 6.4 G/DL (6.0-8.5)
[2016-08-01 05:48] LABS: POTASSIUM, SERUM 5.4 MMOL/L (3.5-5.3); SGOT(AST) 47 U/L (5-40)
[2016-08-02 04:32] LABS: BUN (BLOOD UREA NITROGEN) 20 MG/DL (6-23); CALCIUM, SERUM 8.8 MG/DL (8.5-10.4); CHLORIDE, SERUM 97 MMOL/L (96-112); CREATININE 0.89 MG/DL (0.70-1.30); GFR AFRICAN AMERICAN 116 ML/MIN (>=60); GFR NON AFRICAN AMERICAN 100 ML/MIN (>=60); GLUCOSE, SERUM 192 MG/DL (60-99); POTASSIUM, SERUM 4.5 MMOL/L (3.5-5.3); SODIUM, SERUM 139 MMOL/L (135-148)
[2016-08-02 04:33] LABS: CO2 (CARBON DIOXIDE) 33 MMOL/L (24-34)
[2016-08-03 05:10] LABS: BASOPHILS 0.5 %; BASOPHILS ABSOLUTE 0.04 10/3/uL (0.0-0.16); EOSINOPHILS 4.6 %; EOSINOPHILS ABSOLUTE 0.39 10/3/uL (0.0-0.53); HEMATOCRIT 33.1 % (40.0-51.0); HEMOGLOBIN 10.4 g/dL (13.6-17.8); IMMATURE GRANULOCYTES 4.8 %; IMMATURE GRANULOCYTES ABSOLUTE 0.41 10/3/uL (0.0-0.11); LYMPHOCYTES 24.4 %; LYMPHOCYTES ABSOLUTE 2.07 10/3/uL (0.67-4.30); MEAN CORPUS HGB CONC 31.4 g/dL (32.0-36.0); MEAN CORPUSCULAR VOLUME 98.8 fL (80-100); MEAN PLATELET VOLUME 8.3 fL (9.2-13.0); MONOCYTES 8.7 %; MONOCYTES ABSOLUTE 0.74 10/3/uL (0.21-1.20); NEUTROPHILS ABSOLUTE 4.84 10/3/uL (2.02-8.40); PLATELET COUNT 276 10/3/uL (150-400); RBC DISTRIBUTION WIDTH 13.7 % (12.0-16.0); RED CELL COUNT 3.35 10/6/uL (4.7-6.1); WHITE BLOOD CELLS 8.5 10/3/uL (4.5-10.5)
[2016-08-03 05:20] LABS: MANUAL DIFF NO %
[2016-08-03 05:28] LABS: BUN (BLOOD UREA NITROGEN) 20 MG/DL (6-23); CALCIUM, SERUM 8.8 MG/DL (8.5-10.4); CHLORIDE, SERUM 97 MMOL/L (96-112); CO2 (CARBON DIOXIDE) 32 MMOL/L (24-34); GFR AFRICAN AMERICAN 121 ML/MIN (>=60); GFR NON AFRICAN AMERICAN 104 ML/MIN (>=60); GLUCOSE, SERUM 159 MG/DL (60-99); PHOSPHORUS, SERUM 2.8 MG/DL (2.5-4.5); POTASSIUM, SERUM 4.4 MMOL/L (3.5-5.3); SODIUM, SERUM 137 MMOL/L (135-148)
[2016-08-04 04:15] LABS: BASOPHILS 0.4 %; BASOPHILS ABSOLUTE 0.04 10/3/uL (0.0-0.16); EOSINOPHILS 4.2 %; EOSINOPHILS ABSOLUTE 0.38 10/3/uL (0.0-0.53); HEMATOCRIT 32.1 % (40.0-51.0); HEMOGLOBIN 9.9 g/dL (13.6-17.8); IMMATURE GRANULOCYTES 1.8 %; IMMATURE GRANULOCYTES ABSOLUTE 0.16 10/3/uL (0.0-0.11); LYMPHOCYTES 17.7 %; LYMPHOCYTES ABSOLUTE 1.62 10/3/uL (0.67-4.30); MEAN CORPUS HGB CONC 30.8 g/dL (32.0-36.0); MEAN CORPUSCULAR HEMOGLOB 29.9 pg (26.0-34.0); MEAN PLATELET VOLUME 8.7 fL (9.2-13.0); MONOCYTES 7.2 %; MONOCYTES ABSOLUTE 0.66 10/3/uL (0.21-1.20); NEUTROPHILS 68.7 %; NEUTROPHILS ABSOLUTE 6.28 10/3/uL (2.02-8.40); PLATELET COUNT 271 10/3/uL (150-400); RBC DISTRIBUTION WIDTH 14.1 % (12.0-16.0); RED CELL COUNT 3.31 10/6/uL (4.7-6.1); WHITE BLOOD CELLS 9.1 10/3/uL (4.5-10.5)
[2016-08-04 04:16] LABS: MANUAL DIFF NO %
[2016-08-04 04:31] LABS: BUN (BLOOD UREA NITROGEN) 18 MG/DL (6-23); CALCIUM, SERUM 8.7 MG/DL (8.5-10.4); CHLORIDE, SERUM 98 MMOL/L (96-112); CO2 (CARBON DIOXIDE) 32 MMOL/L (24-34); CREATININE 0.87 MG/DL (0.70-1.30); GFR AFRICAN AMERICAN 117 ML/MIN (>=60); GFR NON AFRICAN AMERICAN 101 ML/MIN (>=60); GLUCOSE, SERUM 162 MG/DL (60-99); PHOSPHORUS, SERUM 3.3 MG/DL (2.5-4.5); SODIUM, SERUM 139 MMOL/L (135-148)
[2016-08-05 04:25] LABS: CALCIUM, SERUM 8.2 MG/DL (8.5-10.4); CHLORIDE, SERUM 98 MMOL/L (96-112); CO2 (CARBON DIOXIDE) 35 MMOL/L (24-34); CREATININE 0.74 MG/DL (0.70-1.30); GFR AFRICAN AMERICAN 125 ML/MIN (>=60); GFR NON AFRICAN AMERICAN 108 ML/MIN (>=60); PHOSPHORUS, SERUM 2.7 MG/DL (2.5-4.5); POTASSIUM, SERUM 3.2 MMOL/L (3.5-5.3); SODIUM, SERUM 142 MMOL/L (135-148)
[2016-08-05 04:27] LABS: BUN (BLOOD UREA NITROGEN) 14 MG/DL (6-23); GLUCOSE, SERUM 125 MG/DL (60-99)
[2016-08-06 06:45] LABS: HEMATOCRIT 33.7 % (40.0-51.0); HEMOGLOBIN 10.4 g/dL (13.6-17.8); MEAN CORPUS HGB CONC 30.9 g/dL (32.0-36.0); MEAN CORPUSCULAR HEMOGLOB 30.8 pg (26.0-34.0); MEAN CORPUSCULAR VOLUME 99.7 fL (80-100); MEAN PLATELET VOLUME 8.7 fL (9.2-13.0); PLATELET COUNT 284 10/3/uL (150-400); RBC DISTRIBUTION WIDTH 14.3 % (12.0-16.0); RED CELL COUNT 3.38 10/6/uL (4.7-6.1); WHITE BLOOD CELLS 7.9 10/3/uL (4.5-10.5)
[2016-08-06 06:50] LABS: MANUAL DIFF YES %
[2016-08-06 07:13] LABS: BAND NEUTROPHILS 3 %; EOSINOPHILS 2 %; EOSINOPHILS ABSOLUTE (CALC) 0.16 10/3/uL (0.0-0.53); LYMPHOCYTES 9 %; LYMPHOCYTES ABSOLUTE (CALC) 0.71 10/3/uL (0.67-4.30); MONOCYTES 4 %; MONOCYTES ABSOLUTE (CALC) 0.32 10/3/uL (0.21-1.20); NEUTROPHILS ABSOLUTE (CALC) 6.72 10/3/uL (2.02-8.40); PLATELET ESTIMATE ADQ (ADEQUATE); RBC MORPHOLOGY NORM (NORMAL); SEGMENTED NEUTROPHIL (0) 82 %; TOTAL NUCLEATED CELLS 100
[2016-08-06 07:42] LABS: BUN (BLOOD UREA NITROGEN) 14 MG/DL (6-23); CALCIUM, SERUM 8.7 MG/DL (8.5-10.4); CHLORIDE, SERUM 98 MMOL/L (96-112); CO2 (CARBON DIOXIDE) 31 MMOL/L (24-34); CREATININE 0.79 MG/DL (0.70-1.30); GFR AFRICAN AMERICAN 121 ML/MIN (>=60); GFR NON AFRICAN AMERICAN 105 ML/MIN (>=60); GLUCOSE, SERUM 138 MG/DL (60-99); PHOSPHORUS, SERUM 2.1 MG/DL (2.5-4.5); POTASSIUM, SERUM 3.3 MMOL/L (3.5-5.3); SODIUM, SERUM 140 MMOL/L (135-148)
[2016-08-07 07:32] LABS: BUN (BLOOD UREA NITROGEN) 11 MG/DL (6-23); CHLORIDE, SERUM 96 MMOL/L (96-112); CO2 (CARBON DIOXIDE) 34 MMOL/L (24-34); CREATININE 0.77 MG/DL (0.70-1.30); GFR AFRICAN AMERICAN 123 ML/MIN (>=60); GFR NON AFRICAN AMERICAN 106 ML/MIN (>=60); GLUCOSE, SERUM 135 MG/DL (60-99); PHOSPHORUS, SERUM 2.6 MG/DL (2.5-4.5); SODIUM, SERUM 137 MMOL/L (135-148)
[2016-08-07 07:34] LABS: POTASSIUM, SERUM 3.9 MMOL/L (3.5-5.3)
[2016-08-09 06:22] LABS: BASOPHILS 0.5 %; BASOPHILS ABSOLUTE 0.03 10/3/uL (0.0-0.16); EOSINOPHILS 5.4 %; EOSINOPHILS ABSOLUTE 0.31 10/3/uL (0.0-0.53); HEMATOCRIT 34.3 % (40.0-51.0); HEMOGLOBIN 10.8 g/dL (13.6-17.8); IMMATURE GRANULOCYTES 0.7 %; IMMATURE GRANULOCYTES ABSOLUTE 0.04 10/3/uL (0.0-0.11); LYMPHOCYTES 36.9 %; LYMPHOCYTES ABSOLUTE 2.12 10/3/uL (0.67-4.30); MEAN CORPUS HGB CONC 31.5 g/dL (32.0-36.0); MEAN CORPUSCULAR HEMOGLOB 30.9 pg (26.0-34.0); MEAN PLATELET VOLUME 8.7 fL (9.2-13.0); MONOCYTES 11.7 %; MONOCYTES ABSOLUTE 0.67 10/3/uL (0.21-1.20); NEUTROPHILS 44.8 %; NEUTROPHILS ABSOLUTE 2.57 10/3/uL (2.02-8.40); PLATELET COUNT 267 10/3/uL (150-400); RBC DISTRIBUTION WIDTH 14.1 % (12.0-16.0); WHITE BLOOD CELLS 5.7 10/3/uL (4.5-10.5)
[2016-08-09 06:27] LABS: MANUAL DIFF NO %
[2016-08-09 06:44] LABS: BUN (BLOOD UREA NITROGEN) 10 MG/DL (6-23); CALCIUM, SERUM 8.7 MG/DL (8.5-10.4); CHLORIDE, SERUM 102 MMOL/L (96-112); CO2 (CARBON DIOXIDE) 34 MMOL/L (24-34); CREATININE 0.76 MG/DL (0.70-1.30); GFR AFRICAN AMERICAN 122 ML/MIN (>=60); GFR NON AFRICAN AMERICAN 106 ML/MIN (>=60); GLUCOSE, SERUM 129 MG/DL (60-99); POTASSIUM, SERUM 3.8 MMOL/L (3.5-5.3); SODIUM, SERUM 142 MMOL/L (135-148)
[2016-08-10 06:31] LABS: BUN (BLOOD UREA NITROGEN) 10 MG/DL (6-23); CALCIUM, SERUM 8.4 MG/DL (8.5-10.4); CHLORIDE, SERUM 104 MMOL/L (96-112); CO2 (CARBON DIOXIDE) 30 MMOL/L (24-34); CREATININE 0.75 MG/DL (0.70-1.30); GFR AFRICAN AMERICAN 123 ML/MIN (>=60); GFR NON AFRICAN AMERICAN 106 ML/MIN (>=60); GLUCOSE, SERUM 123 MG/DL (60-99); POTASSIUM, SERUM 4.1 MMOL/L (3.5-5.3); SODIUM, SERUM 140 MMOL/L (135-148)
[2016-08-14 05:03] LABS: HEMATOCRIT 37.4 % (40.0-51.0); HEMOGLOBIN 11.5 g/dL (13.6-17.8); MEAN CORPUS HGB CONC 30.7 g/dL (32.0-36.0); MEAN CORPUSCULAR HEMOGLOB 30.1 pg (26.0-34.0); MEAN CORPUSCULAR VOLUME 97.9 fL (80-100); MEAN PLATELET VOLUME 8.9 fL (9.2-13.0); PLATELET COUNT 259 10/3/uL (150-400); RBC DISTRIBUTION WIDTH 14.7 % (12.0-16.0); RED CELL COUNT 3.82 10/6/uL (4.7-6.1)
[2016-08-14 05:04] LABS: MANUAL DIFF YES %
[2016-08-14 06:42] LABS: EOSINOPHILS 6 %; LYMPHOCYTES 22 %; MONOCYTES 7 %; MONOCYTES ABSOLUTE (CALC) 0.35 10/3/uL (0.21-1.20); NEUTROPHILS ABSOLUTE (CALC) 3.25 10/3/uL (2.02-8.40); PLATELET ESTIMATE ADQ (ADEQUATE); POLYCHROMASIA 1+ (2-5/OIF) (0-1/OIF); SEGMENTED NEUTROPHIL (0) 65 %; TOTAL NUCLEATED CELLS 100
[2016-08-14 13:27] LABS: BUN (BLOOD UREA NITROGEN) 9 MG/DL (6-23); CHLORIDE, SERUM 101 MMOL/L (96-112); CO2 (CARBON DIOXIDE) 34 MMOL/L (24-34); CREATININE 0.74 MG/DL (0.70-1.30); GFR AFRICAN AMERICAN 124 ML/MIN (>=60); GFR NON AFRICAN AMERICAN 107 ML/MIN (>=60); POTASSIUM, SERUM 4.2 MMOL/L (3.5-5.3); SODIUM, SERUM 141 MMOL/L (135-148)
[2016-08-14 13:28] LABS: CALCIUM, SERUM 9.4 MG/DL (8.5-10.4); GLUCOSE, SERUM 152 MG/DL (60-99)
[2016-08-18 21:15] LABS: ASCORBIC ACID (UR NOT ORDER) NEG (NEG); BILIRUBIN, URINE NEGATIVE (NEG); KETONE, URINE NEGATIVE (NEG); LEUKOCYTE ESTERASE(NOT OR LARGE (NEG); WBC (NOT ORDERED) (RFLEX) > 182 (0-5)
[2016-08-19 09:36] LABS: BASOPHILS 0.5 %; BASOPHILS ABSOLUTE 0.03 10/3/uL (0.0-0.16); EOSINOPHILS 6.9 %; EOSINOPHILS ABSOLUTE 0.41 10/3/uL (0.0-0.53); HEMATOCRIT 42.9 % (40.0-51.0); HEMOGLOBIN 13.6 g/dL (13.6-17.8); IMMATURE GRANULOCYTES 0.3 %; IMMATURE GRANULOCYTES ABSOLUTE 0.02 10/3/uL (0.0-0.11); LYMPHOCYTES 30.6 %; LYMPHOCYTES ABSOLUTE 1.81 10/3/uL (0.67-4.30); MANUAL DIFF NO %; MEAN CORPUS HGB CONC 31.7 g/dL (32.0-36.0); MEAN CORPUSCULAR VOLUME 97.7 fL (80-100); MEAN PLATELET VOLUME 8.9 fL (9.2-13.0); MONOCYTES 9.1 %; MONOCYTES ABSOLUTE 0.54 10/3/uL (0.21-1.20); NEUTROPHILS 52.6 %; NEUTROPHILS ABSOLUTE 3.11 10/3/uL (2.02-8.40); PLATELET COUNT 295 10/3/uL (150-400); RBC DISTRIBUTION WIDTH 14.3 % (12.0-16.0); RED CELL COUNT 4.39 10/6/uL (4.7-6.1); WHITE BLOOD CELLS 5.9 10/3/uL (4.5-10.5)
[2016-08-19 09:44] LABS: BUN (BLOOD UREA NITROGEN) 11 MG/DL (6-23); CALCIUM, SERUM 9.1 MG/DL (8.5-10.4); CHLORIDE, SERUM 103 MMOL/L (96-112); CREATININE 0.83 MG/DL (0.70-1.30); GFR AFRICAN AMERICAN 118 ML/MIN (>=60); GFR NON AFRICAN AMERICAN 102 ML/MIN (>=60); SGPT(ALT) 27 U/L (5-65); SODIUM, SERUM 136 MMOL/L (135-148); TOTAL BILIRUBIN 0.5 MG/DL (0-1.2)
[2016-08-19 09:45] LABS: A/G RATIO 0.5 (0.7-1.9); ALBUMIN 2.7 G/DL (3.5-5.0); CO2 (CARBON DIOXIDE) 25 MMOL/L (24-34); GLOBULIN 5.2 G/DL (2.5-4.1); GLUCOSE, SERUM 201 MG/DL (60-99); PHOSPHORUS, SERUM 3.4 MG/DL (2.5-4.5); POTASSIUM, SERUM 4.8 MMOL/L (3.5-5.3); TOTAL PROTEIN 7.9 G/DL (6.0-8.5)
[2016-08-19 09:46] LABS: ALKALINE PHOSPHATASE 51 U/L (45-117); SGOT(AST) 41 U/L (5-40)
[2016-08-21 08:43] LABS: BASOPHILS 0.4 %; BASOPHILS ABSOLUTE 0.02 10/3/uL (0.0-0.16); EOSINOPHILS ABSOLUTE 0.37 10/3/uL (0.0-0.53); HEMATOCRIT 40.2 % (40.0-51.0); HEMOGLOBIN 12.8 g/dL (13.6-17.8); IMMATURE GRANULOCYTES 0.6 %; IMMATURE GRANULOCYTES ABSOLUTE 0.03 10/3/uL (0.0-0.11); LYMPHOCYTES 36.1 %; MEAN CORPUS HGB CONC 31.8 g/dL (32.0-36.0); MEAN CORPUSCULAR HEMOGLOB 30.8 pg (26.0-34.0); MEAN CORPUSCULAR VOLUME 96.6 fL (80-100); MEAN PLATELET VOLUME 9.2 fL (9.2-13.0); MONOCYTES 8.9 %; MONOCYTES ABSOLUTE 0.47 10/3/uL (0.21-1.20); NEUTROPHILS ABSOLUTE 2.48 10/3/uL (2.02-8.40); PLATELET COUNT 329 10/3/uL (150-400); RBC DISTRIBUTION WIDTH 14.4 % (12.0-16.0); RED CELL COUNT 4.16 10/6/uL (4.7-6.1); WHITE BLOOD CELLS 5.3 10/3/uL (4.5-10.5)
[2016-08-21 08:52] LABS: ALBUMIN 2.9 G/DL (3.5-5.0); BUN (BLOOD UREA NITROGEN) 12 MG/DL (6-23); CALCIUM, SERUM 9.4 MG/DL (8.5-10.4); CHLORIDE, SERUM 101 MMOL/L (96-112); CO2 (CARBON DIOXIDE) 29 MMOL/L (24-34); CREATININE 0.87 MG/DL (0.70-1.30); GFR AFRICAN AMERICAN 116 ML/MIN (>=60); GFR NON AFRICAN AMERICAN 100 ML/MIN (>=60); GLUCOSE, SERUM 182 MG/DL (60-99); POTASSIUM, SERUM 4.2 MMOL/L (3.5-5.3); SODIUM, SERUM 139 MMOL/L (135-148)
[2016-08-21 08:54] LABS: MANUAL DIFF NO %
[2016-08-22 07:44] LABS: ALBUMIN 3.1 G/DL (3.5-5.0); BUN (BLOOD UREA NITROGEN) 12 MG/DL (6-23); CALCIUM, SERUM 9.8 MG/DL (8.5-10.4); CHLORIDE, SERUM 101 MMOL/L (96-112); CO2 (CARBON DIOXIDE) 29 MMOL/L (24-34); CREATININE 0.86 MG/DL (0.70-1.30); GFR AFRICAN AMERICAN 116 ML/MIN (>=60); GFR NON AFRICAN AMERICAN 100 ML/MIN (>=60); GLUCOSE, SERUM 177 MG/DL (60-99); PHOSPHORUS, SERUM 4.4 MG/DL (2.5-4.5); POTASSIUM, SERUM 4.1 MMOL/L (3.5-5.3); SODIUM, SERUM 138 MMOL/L (135-148)
== END 2016-08-23 21:12 | DRG 682 ==
LOC: ER 00:26 → 6NO 13:06 → SDC/OF 07-28 18:42 → CCU 07-28 21:13 → 6NO 08-05 22:29
PROVIDERS: Emergency Medicine; Hospitalist; Internal Medicine; Internal Medicine Critical Care Medicine; Internal Medicine Pulmonary Disease; Nurse Practitioner Family; Radiology Diagnostic Radiology; Urology
PROC: 0T9B30Z Drainage of Bladder with Drainage Device, Percutaneous Approach (ICD-10-PCS; principal; 2016-07-28)
PROC: 05HM33Z Insertion of Infusion Device into Right Internal Jugular Vein, Percutaneous Approach (ICD-10-PCS; 2016-07-28)
PROC: 0BH17EZ Insertion of Endotracheal Airway into Trachea, Via Natural or Artificial Opening (ICD-10-PCS; 2016-07-29)
PROC: 5A1955Z Respiratory Ventilation, Greater than 96 Consecutive Hours (ICD-10-PCS; 2016-07-29)
DX: N17.9 Acute kidney failure, unspecified (principal); J95.821 Acute postprocedural respiratory failure; J15.212 Pneumonia due to Methicillin resistant Staphylococcus aureus; I95.9 Hypotension, unspecified; E44.0 Moderate protein-calorie malnutrition; E87.1 Hypo-osmolality and hyponatremia; E66.2 Morbid (severe) obesity with alveolar hypoventilation; Z68.45 Body mass index [BMI] 70 or greater, adult; N39.0 Urinary tract infection, site not specified; E66.01 Morbid (severe) obesity due to excess calories; Z51.5 Encounter for palliative care; L98.491 Non-pressure chronic ulcer of skin of other sites limited to breakdown of skin; E86.0 Dehydration; I10 Essential (primary) hypertension; K21.9 Gastro-esophageal reflux disease without esophagitis; R46.0 Very low level of personal hygiene; R15.9 Full incontinence of feces; N48.83 Acquired buried penis; J40 Bronchitis, not specified as acute or chronic; B95.62 Methicillin resistant Staphylococcus aureus infection as the cause of diseases classified elsewhere; Z66 Do not resuscitate; F99 Mental disorder, not otherwise specified; L30.4 Erythema intertrigo; N39.498 Other specified urinary incontinence; K59.00 Constipation, unspecified; B96.4 Proteus (mirabilis) (morganii) as the cause of diseases classified elsewhere; B96.20 Unspecified Escherichia coli [E. coli] as the cause of diseases classified elsewhere; B96.1 Klebsiella pneumoniae [K. pneumoniae] as the cause of diseases classified elsewhere
CPT/HCPCS: 31720; 36600; 49441; 51102; 71010; 74000; 80048; 80053; 80061; 80069; 81001; 82140; 82533; 82805; 82962; 83036; 83605; 83735; 83880; 84100; 84132; 84145; 84439; 84443; 85025; 85347; 85610; 87040; 87070; 87077; 87086; 87186; 87205; 87641; 93005; 94002; 94003; 94640; 94660; 94762; 94770; 96374; 97162-GP; 97164-GP; 99285; A9270-GY; C1729; C1769; C9113; G8978-CM-GP; G8979-CK-GP; J1170; J1720; J2020; J2250; J2370; J2405; J3010; Q9967